=== PATIENT | male | born 1945 ===

== ENCOUNTER 2018-03-27 10:09 | Emergency (ER) | payer MEDICARE, BC ==
[2018-03-27 10:37] VITALS: BP 132/68
--- NOTE | 2018-03-27 10:59 | UC ---
General HPI - HPI Summary HPI Summary: 72 y/o male presents to the urgent care c/o B/L joint pains and muscle pain for the past 2 weeks. However, he developed sore throat, mild MARKHAM, swollen neck glands and now w/ generalized joint and muscle pains. Pt has PMHX of Polimyalgia Rheumatica and Triple by pass surgery. He is from [place] and usually spends the summer here at [place]. He also does regular Cardiac rehab and though his joint pain was due to that. He feels weaker than normal today. He takes Prednisone 5mg PO on a daily basis and Metrotrexate once/week for his Polimyalgia Rheumatica. Pt denies dizziness, ear pian, cough, SOB, chest pain, abdominal pain, N/V/D. - History of Current Complaint Chief Complaint: UCGeneralIllness Stated Complaint: BILAT JOINT PAIN, SWOLLEN GLANDS Time Seen by Provider: 03/27/18 10:24 Hx Obtained From: Patient Onset/Duration: Gradual Onset, Lasting Weeks - 2 weeks B/l joint pains, Worse Since - 2 days w/ B/L swollen neck glands Timing: Constant Onset Severity: Mild Current Severity: Mild Pain Intensity: 3 Associated Signs & Symptoms: Positive: Fever - today low grade, Weakness. Negative: Agitation, Abdominal Pain, Back Pain, Confusion, Cough, Dizziness, Headache, Vomiting, Wheezing - Allergy/Home Medications Allergies/Adverse Reactions: Allergies Allergy/AdvReac Type Severity Reaction Status Date / Time No Known Allergies Allergy Verified 03/27/18 10:33 Home Medications: Home Medications Aspirin EC TAB* [Ecotrin EC Low Dose 81 MG*] 81 mg PO DAILY 03/27/18 [History Confirmed 03/27/18] Cyanocobalamin TAB* [Vitamin B12 TAB*] 1,000 mcg PO DAILY 03/27/18 [History Confirmed 03/27/18] Eluxadoline [Viberzi] 100 mg PO DAILY 03/27/18 [History Confirmed 03/27/18] Folic Acid TAB* [Folvite TAB*] 1 mg PO DAILY 03/27/18 [History Confirmed ] Lisinopril TAB* [Prinivil TAB 10 MG*] 20 mg PO BID 03/27/18 [History Confirmed 03/27/18] Methotrexate TAB* 6 tab PO WEEKLY 03/27/18 [History Confirmed 03/27/18] Nitroglycerin [Nitrostat] 0.4 mg SL DAILY PRN 03/27/18 [History Confirmed ] Rosuvastatin Calcium [Crestor] 20 mg PO DAILY 03/27/18 [History Confirmed ] SUMAtriptan TAB* [Imitrex TAB*] 100 mg PO SEE INSTRUCTIONS 03/27/18 [History Confirmed 03/27/18] Sotalol TAB* [Betapace 80 MG TAB*] 80 mg PO BID 03/27/18 [History Confirmed ] ValACYclovir (*) [Valtrex 1 GM(*)] 1 gm PO DAILY 03/27/18 [History Confirmed ] Zolpidem TAB* [Ambien*] 10 mg PO BEDTIME PRN 03/27/18 [History Confirmed ] predniSONE TAB* [Deltasone TAB*] 5 mg PO DAILY 03/27/18 [History Confirmed 03/27] raNITIdine HCl [Ranitidine HCl] 150 mg PO BID 03/27/18 [History Confirmed ] PMH/Surg Hx/FS Hx/Imm Hx Previously Healthy: Yes Endocrine History: Dyslipidemia Other Endocrine History: Polimyalgia Rheumatica, GOUT Cardiovascular History: Cardiac Disease, Hypertension GI/ History: Gastroesophageal Reflux Neurological History: Migraine Psychological History: Depression - Surgical History Surgical History: Yes Surgery Procedure, Year, and Place: Triple bypass 2014. appy. left shoulder - Social History Alcohol Use: Occasionally Substance Use Type: None Smoking Status (MU): Former Smoker Review of Systems Constitutional: Fatigue Skin: Negative Eyes: Negative ENT: Sore Throat Respiratory: Negative Cardiovascular: Negative Gastrointestinal: Negative Genitourinary: Negative Motor: Weakness Neurovascular: Negative Musculoskeletal: Negative Neurological: Headache Psychological: Negative Is Patient Immunocompromised?: No All Other Systems Reviewed And Are Negative: Yes Physical Exam - Summary Physical Exam Summary: VITAL SIGNS: Reviewed. GENERAL: Patient is a well developed and nourished male who is sitting comfortable in the examining table. Patient is not in any acute respiratory distress. HEAD AND FACE: No signs of trauma. No ecchymosis, hematomas or skull depressions. No sinus tenderness. EYES: PERRLA, EOMI x 2, No injected conjunctiva, no nystagmus. No photophobia. EARS: Hearing grossly intact. Ear canals and tympanic membranes are within normal limits. MOUTH: Positive pharynx with erythema, no exudates, mild palatal petechiae. No B /L tonsillar enlargement . Uvula in midline. NECK: Supple, trachea is midline, Positive anterior cervical lymphadenopathy, no JVD, no carotid bruit, no c-spine tenderness, neck with full ROM. No meningeal signs, no Kernig's or brudzinskis signs. CHEST: Symmetric, no tenderness at palpation LUNGS: Clear to auscultation bilaterally. No wheezing or crackles. CVS: Regular rate and rhythm, S1 and S2 present, no murmurs or gallops appreciated. ABDOMEN: Soft, non-tender. No signs of distention. No rebound no guarding, and no masses palpated. Bowel sounds are normal. EXTREMITIES: FROM in all major joints, no edema, no cyanosis or clubbing. NEURO: Alert and oriented x 3. No acute neurological deficits. Speech is normal and follows commands. SKIN: Dry and warm Triage Information Reviewed: Yes Vital Signs: Initial Vital Signs Temp 100.6 F 03/27/18 10:26 Pulse 67 03/27/18 10:26 Resp 15 03/27/18 10:26 BP 132/68 03/27/18 10:26 Pulse Ox 98 03/27/18 10:26 Course/Dx - Course Course Of Treatment: 72 y/o male presents to the urgent care c/o B/L joint pains and muscle pain for the past 2 weeks. However, he developed sore throat, mild MARKHAM, swollen neck glands and now w/ generalized joint and muscle pains. Pt has PMHX of Polimyalgia Rheumatica and Triple by pass surgery. He is from [place] and usually spends the summer here at [place]. He also does regular Cardiac rehab and though his joint pain was due to that. He feels weaker than normal today. He takes Prednisone 5mg PO on a daily basis and Metrotrexate once/week for his Polimyalgia Rheumatica. Pt denies dizziness, ear pian, cough, SOB, chest pain, abdominal pain, N/V/D. Hx obtained. Pt w/ pharyngitis on examination. Rapid strep ordered, result: negative.Influenza A&B ordered: result: negative.Pt's symptoms discussed w/ DR Novak and he recommended Pt should f/u w/ a PCP for further blood work up and management w/ his polimyalgia rheumatica. Pt explained that his Viral pharyngitis can exacerbate his Polimyalgia rheumatica. Advised on hand washing and wear a mask to avoid spreading. Also advised to take Meloxicam PO he has at home and to rest, increase fluid intake, eat well and avoid strenuous exercise.Pt Given referral for a f/u w/ a PCP from our network for further management. Pt understood and agreed with plan of care. - Differential Dx - Multi-Symptom Differential Diagnoses: Other - URI, Pharyngitis, Polimyalgia rheumatica exacerbation, tonsillitis, influenza, laryngitis Provider Diagnoses: 1- Pharyngitis - Physician Notifications Discussed Patient Care With: Abdullahi Novak - DR Novak agreed w/ Pt's plan of care. Discharge - Sign-Out/Discharge Documenting (check all that apply): Patient Departure - D/C home - Discharge Plan Condition: Stable Disposition: HOME Patient Education Materials: Pharyngitis (ED) Referrals: [facility] REFERRAL [Outside] - 2 Days Additional Instructions: 1- Strep and Influenza A&B are negative. You have a Viral pharyngitis 2-Please take Meloxicam PO you have at home as directed by your PCP prn as instructed after meals to alleviate pain and swelling. Increase fluid intake, eat well, rest and avoid strenuous exercise 3-Please F/U w/ a PCP form the [facility] network for further management in you Polymialgia Rheumatica. - Billing Disposition and Condition Condition: STABLE Disposition: Home
== END 2018-03-27 11:32 | disposition home or self-care (01) ==
LOC: UCCORT 10:09
DX: J02.9 Acute pharyngitis, unspecified (principal); I10 Essential (primary) hypertension; E78.5 Hyperlipidemia, unspecified; I51.9 Heart disease, unspecified; G43.909 Migraine, unspecified, not intractable, without status migrainosus; K21.9 Gastro-esophageal reflux disease without esophagitis; Z87.891 Personal history of nicotine dependence
CPT/HCPCS: 87651; 99201; G0463